=== PATIENT | male | born 1950 | race Caucasian/White ===

== ENCOUNTER 2016-05-05 07:22 | Day surgery (SDC) | payer BC ==
[~2016-05-05] VITALS: Ht 170.2 cm; Wt 73.0 kg
[~2016-05-05 07:22] MED LIST: ACETAMINOPHEN 500 MG TAB (TYLENOL) PO SCH; BUPIVACAINE/EPINEPHRINE 0.25%-1:200,000 (MARCAINE) 30 ML VIAL INJ ONE; HEPARIN 5000 UNIT/0.5 ML SYRINGE ONE; LACTATED RINGERS 1,000 ML IV SCH; LIDOCAINE/EPINEPHRINE 1% 1:100,000 (XYLOCAINE) 30 ML VIAL INJ ONE; SODIUM CHLORIDE FLUSH 3 ML SYR IV SCH; SODIUM CHLORIDE ONE; ceFAZolin 2,000 MG in SODIUM CHLORIDE VIAL (PF) 20 ML IV SCH; oxyCODONE IMMEDIATE RELEASE 5 MG (OXYIR) TAB PO SCH
[2016-05-05 07:33] VITALS: BP 157/91
[2016-05-05] MEDS ORDERED: METOCLOPRAMIDE 10 MG/2 ML (REGLAN) VIAL IV ONE (09:00)
[2016-05-05] MEDS ORDERED: ONDANSETRON 2 MG/ML (Z0FRAN) 2 ML VIAL IV PRN (09:05)
[2016-05-05] MEDS ORDERED: diphenhydrAMINE 50 MG/ML INJ (BENADRYL) IV ONE (09:05)
[2016-05-05 09:11] LABS: BAND NEUTROPHILS % 0 % (0-6); EOSINOPHILS % 1 % (0-4); LYMPHOCYTES # 2.8 #; MEAN CORPUSCULAR HGB CONC 33.4 g/dL (31.0-37.0); MEAN CORPUSCULAR VOLUME 90 FL (80-100); MEAN PLATELET VOLUME 10.2 FL (6.0-9.5); MONOCYTES # 0.4 #; MONOCYTES % 6 % (3-11); PLATELET COUNT 270 10^3uL (150-450); RBC MORPH NORMAL (NORMAL); SEGMENTED NEUTROPHILS % 54 % (51-67); TOTAL CELLS COUNTED 100; WHITE BLOOD COUNT 7.24 10^3uL (4.0-11.0)
[2016-05-05] MEDS ORDERED: EPINEPHrine 0.1 MG/ML (1:10,000) 10 ML SYRINGE ONE (10:31)
[2016-05-05] MEDS ORDERED: MIDAZOLAM 2 MG/2 ML (VERSED) VIAL ONE (10:58)
[2016-05-05] MEDS ORDERED: ALFENTANIL 500 MCG/ML (ALFENTA) 5 ML AMP IV ONE (10:58)
[2016-05-05] MEDS ORDERED: PROPOFOL 40 ML IV ONE (11:00)
[2016-05-05 13:08] VITALS: BP 143/93
[2016-05-05 13:28] VITALS: BP 170/74
[2016-05-05 13:38] VITALS: BP 158/76
== END 2016-05-05 13:39 | disposition home or self-care (01) ==
LOC: ASC 07:22
PROVIDERS: ATTEND Surgery
DX: C18.7 Malignant neoplasm of sigmoid colon (principal); I25.10 Atherosclerotic heart disease of native coronary artery without angina pectoris; I10 Essential (primary) hypertension; E11.9 Type 2 diabetes mellitus without complications; K21.9 Gastro-esophageal reflux disease without esophagitis
CPT/HCPCS: 36415; 36561; 77001; 85025; 93005; C1788; J0171; J1644; J2250; J7120

== ENCOUNTER → 2016-07-14 | Outpatient (CLI) | payer BC ==
[~2016-07-14] MED LIST changes: -ACETAMINOPHEN 500 MG TAB (TYLENOL) PO SCH; +ASPI-586 PO; -BUPIVACAINE/EPINEPHRINE 0.25%-1:200,000 (MARCAINE) 30 ML VIAL INJ ONE; +GLIP5TAB13 PO; -HEPARIN 5000 UNIT/0.5 ML SYRINGE ONE; -LACTATED RINGERS 1,000 ML IV SCH; -LIDOCAINE/EPINEPHRINE 1% 1:100,000 (XYLOCAINE) 30 ML VIAL INJ ONE; +LSRT50T PO; +METF-473 PO; +MTP50T PO; +OMEP20CA12 PO; +RANI150T15 PO; +SIMV40TA2 PO; -SODIUM CHLORIDE FLUSH 3 ML SYR IV SCH; -SODIUM CHLORIDE ONE; -ceFAZolin 2,000 MG in SODIUM CHLORIDE VIAL (PF) 20 ML IV SCH; -oxyCODONE IMMEDIATE RELEASE 5 MG (OXYIR) TAB PO SCH
[2016-07-14 07:43] LABS: MEAN CORPUSCULAR HEMOGLOBIN 31.3 PG (26.0-34.0); MEAN CORPUSCULAR HGB CONC 34.1 g/dL (31.0-37.0); MEAN CORPUSCULAR VOLUME 92 FL (80-100); PLATELET COUNT 137 10^3uL (150-450); WHITE BLOOD COUNT 4.14 10^3uL (4.0-11.0)
[2016-07-14 07:55] LABS: ALBUMIN 3.9 g/dL (3.4-5.0); ANION GAP 13.7 MEQ/L (3-15)
[2016-07-14 07:57] LABS: BAND NEUTROPHILS % 0 % (0-6); EOSINOPHILS % 3 % (0-4); LYMPHOCYTES # 1.4 #; MONOCYTES # 0.8 #; MONOCYTES % 21 % (3-11)
[2016-07-14 07:58] LABS: ANISOCYTOSIS MODERATE; NUCLEATED RED BLOOD CELLS 2; RBC MORPH SEE REFERENCE (NORMAL)
[2016-07-15 08:36] LABS: SEGMENTED NEUTROPHILS % 42 % (51-67); TOTAL CELLS COUNTED 100
== END ==
LOC: LAB 07:33
PROVIDERS: ATTEND Internal Medicine Hematology & Oncology
DX: C18.7 Malignant neoplasm of sigmoid colon (principal)
CPT/HCPCS: 36415; 80053; 85025